=== PATIENT | female | born 1985 | race Caucasian/White ===

== ENCOUNTER 2021-01-27 06:35 | Outpatient (CLI) | payer OTHER, SELFPAY ==
--- NOTE | ~2021-01-27 | XR_ITS ---
XR hysterosalpingogram 01/27/2021 08:13 TECHNIQUE: Hysterosalpingogram was performed by Dr. Tan Acosta MD with fluoroscopic guidance. I was present to obtain fluoroscopic images.6 fluoroscopic images. FINDINGS: [employer] Worker radiograph demonstrates an unremarkable pelvis. Fluoroscopic images demonstrates nor mal appearing endometrial cavity which has been cannulated. Upon injection of contrast, both fallopi an tubes opacify and are normal in appearance. There is free spillage bilaterally. Uterus is withou t evidence of synechia. There is iatrogenic gas at the left uterine fundus. IMPRESSION: 1: Patent fallopian tubes. Reviewed, dictated and finalized at location A. IMPRESSION: 1: Patent fallopian tubes.
[2021-01-27 07:49] LABS: Beta HCG Quantitative < 2.39 mIU/ML
--- NOTE | 2021-01-27 08:26 | W.PM.PROC2 ---
Procedure Note - Detailed Date of Procedure 01/27/21 Pre-op Diagnosis Infertility Post-op Diagnosis same Procedure Performed Hysterosalpingogram Surgeon Tan Acosta MD Anesthesia none Indications unexplained infertility Findings normal hysterosalpingogram Description of Procedure the patient was placed on the fluoroscopy table. A speculum was placed in the vagina. Cervix was grasped with a tenaculum. The catheter was placed the uterine cavity and the bulb was inflated. The speculum was removed with the angiocath still placed in the intrauterine cavity. Dye was then removed. The catheter. Fluoroscopic images obtained this process. Patient experienced some moderate to severe discomfort. The balloon of the catheter was deflated and the catheter was removed while the images were being obtained. The procedure was terminated. Patient tolerated the procedure well. There were no complications. Estimated Blood Loss 0 Complications No immediate complications Condition stable Disposition other
== END 2021-01-27 06:36 | disposition home or self-care (01) ==
PROVIDERS: Visit Provider Obstetrics & Gynecology
DX: Z31.9 Encounter for procreative management, unspecified (principal); N91.2 Amenorrhea, unspecified
CPT/HCPCS: 36415; 58340; 74740; 84702; Q9966